=== PATIENT | female | born 1960 | race American Indian/Alaskan Native ===

== ENCOUNTER 2017-04-14 10:38 | Day surgery (SDC) | payer OTHER ==
[2017-04-14] MEDS ORDERED: HYDROmorphONE/DILAUDID 1 MG/ML SYR IVP PRN (11:23)
[2017-04-14] MEDS ORDERED: LIDOCAINE 1% 2 ML INJ ONE (13:32)
[2017-04-14] MEDS ORDERED: CHLORHEXIDINE GLUC HIBICLENS 118 ML BTL TP ONE (14:00)
[2017-04-14] MEDS ORDERED: ceFAZolin 2 GM/DEXTROSE 100 ML IV ONE (14:00)
[2017-04-14] MEDS ORDERED: ceFAZolin 3 GM in D5W 100 ML IV ONE (14:00)
[2017-04-14] MEDS ORDERED: HYDROmorphONE/DILAUDID 2 MG/ML INJ ONE (14:17)
[2017-04-14] MEDS ORDERED: POLYMYXIN B SULFATE 500,000 UNIT/10 ML SYR IRR ONE (15:49)
[2017-04-14] MEDS ORDERED: BUPIVACAINE 0.25% 30 ML SDV ONE (15:49)
[2017-04-14] MEDS ORDERED: BACITRACIN 50,000 UNITS/10 ML SYR IRR ONE (16:28)
[2017-04-14] MEDS ORDERED: MIDAZOLAM 2 MG/2 ML VIAL ONE (16:39)
[2017-04-14] MEDS ORDERED: PROPOFOL/EMULSION 500 MG/50 ML BOTTLE IV ONE (16:42)
[2017-04-14] MEDS ORDERED: DEXAMETHASONE 4 MG/ML VIAL ONE (16:43)
[2017-04-14] MEDS ORDERED: METOCLOPRAMIDE 10 MG/2 ML VIAL ONE (16:43)
[2017-04-14] MEDS ORDERED: fentaNYL 100 MCG/2 ML INJ ONE ×3 (16:44→19:11)
[2017-04-14] MEDS ORDERED: KETOROLAC 30 MG/1 ML SDV ONE (18:40)
[2017-04-14] MEDS ORDERED: HYDROCODONE/APAP 5/325 TAB ONE (19:23)
[2017-04-14] MEDS ORDERED: HYDROCODONE/APAP 10/325 TAB ONE (19:24)
--- NOTE | 2017-04-15 07:40 | GOP ---
[f rep st] OPERATIVE REPORT DATE OF OPERATION: 04/14/2017 SURGEON: Josiah Petersen MD PREOPERATIVE DIAGNOSIS: Right distal radius intra-articular fracture. POSTOPERATIVE DIAGNOSIS: Right distal radius intra-articular fracture. PROCEDURE PERFORMED: Open reduction, internal fixation, right intra-articular distal radius fractur e. FINDINGS: Synthes dorsal locking plates were utilized. I also propped up the articular fragments w ith cancellous graft. INDICATIONS: The patient is a 56-year-old woman who sustained the above injury in a trip and fall o [place] a week ago. She is brought to the operating now for definitive surgical management of her heavi ly comminuted intra-articular distal radius fracture. DESCRIPTION OF PROCEDURE: After routinely checking the patient's identification and consent and the successful induction of LMA general anesthetic, the patient's right arm and hand were prepped and d raped in the usual standard fashion. Exsanguinated the limb with an Esmarch wrap and pneumatic tour niquet previously placed about the proximal right arm was inflated to 250 mmHg. A surgical time-out was completed. A dorsal midline incision over the right wrist was carried sharply through the skin . I spread bluntly through subcutaneous layer. I dissected down to the extensor retinaculum and ma de an incision directly over the 4th dorsal compartment. I extended this in a radialward direction to expose the EPL tendon at the 3rd dorsal compartment. I then unroofed the EPL tendon and then tra nslocated this and retracted this radially. I performed a subperiosteal dissection to expose the di stal radius both in the radial and ulnar directions. The extensively comminuted dorsal cortex was r eadily identifiable. I opened the 2 main dorsal fragments of bone radially and ulnarly. The pu nch central fragment was mobilized with a Breckenridge elevator and elevated. I flexed the wrist and advan kolby the compressed central punch fragment against the scaphoid and used the scaphoid as a mold. I irrigated the wound and then packed cancellous graft behind this, filling the void of her crushed cancellous bone. Once I had an adequate amount of bone graft there, I reinspected the articular fa ce of the distal radius. The pieces were grossly well aligned with the exception of a small amount of central palmar comminution between the scaphoid and lunate fossa. I did not think I could adequa tely address this nor did I think it would be insignificant articular contact during wrist flexion e xtension. As such, with the main articular fragment of the scaphoid fossa realigned with the lunate fossa, I replaced the dorsal fragments and used a K-wire provisional fixation. I checked the reduc tion with the FluoroScan unit and was satisfied this was appropriately and as anatomically reduced a s possible based on the crushed fragments. I estimate there were 8 fragments of the distal radius a rticular surface. Once I had satisfied myself that K-wire fixation was appropriate, I started remov ing K-wires replacing them in order to place the dorsal plates. I placed the ulnar side plate 1st a nd affixed it to the shaft. I then placed the radial plate. Unfortunately the positioning was such that the screw holes lined up almost perfectly and abutting against each other. As such, I alterna loy screws, locking screws and nonlocking screws such that I could alter the trajectory of the screw s so they would not impede on each other. I was able to bend the distal aspect of the plate such th at the screws were just under the subchondral cortex under the subchondral bone. I removed all the K-wires and the FluoroScan unit was used to check that the reduction was satisfactory and the articu lar face was adequately aligned. Satisfied with this, I irrigated the wound thoroughly. I closed t he capsule that I had opened dorsally to expose the articular surface with 2-0 Vicryl. I closed the retinaculum, leaving the EPL tendon out of the retinaculum with 2-0 Vicryl. The subcutaneous layer was closed with 4-0 Vicryl and the skin was closed with subcuticular 4-0 Monocryl. 0.25% Marcaine plus epinephrine was infiltrated around the wound for postoperative comfort and a sterile bulky dres sing was applied, followed by a volar plaster splint and compressive wrap. The patient was transfer red to the recovery area in excellent condition. She tolerated the procedure well. There were no c omplications. /[id number]/MODL
== END 2017-04-14 20:40 | disposition home health service (06) ==
LOC: FSGY 10:38
PROVIDERS: ATTEND Orthopaedic Surgery Hand Surgery
PROC: 0PSH04Z Reposition Right Radius with Internal Fixation Device, Open Approach (ICD-10-PCS; principal; 2017-04-14 15:15)
DX: S52.571A Other intraarticular fracture of lower end of right radius, initial encounter for closed fracture (principal); F17.200 Nicotine dependence, unspecified, uncomplicated; W18.09XA Striking against other object with subsequent fall, initial encounter; Z90.710 Acquired absence of both cervix and uterus; Z96.89 Presence of other specified functional implants
CPT/HCPCS: 25609; C1769; C1713; C1762; J0690; J1100; J1170; J1885; J2250; J2704; J2765; J3010

== ENCOUNTER → 2018-02-18 | Outpatient (CLI) | payer OTHER | LOC: FIMAGING 13:56 | PROVIDERS: ATTEND Internal Medicine | DX: Z13.820 Encounter for screening for osteoporosis (principal); M85.89 Other specified disorders of bone density and structure, multiple sites; Z87.891 Personal history of nicotine dependence ==